=== PATIENT | male | born 1995 | race Hispanic/Latino ===

== ENCOUNTER 2022-05-15 15:55 | Emergency (ER) | payer OTHER, SELFPAY ==
[2022-05-15 17:35] LABS: Absolute Lymphocytes (CBC) 2.2 K/uL (0.7-4.9); Hematocrit 47.9 % (39.6-49.0); Lymphocytes % 24.6 % (15.3-44.8); MPV 7.9 fL (7.6-11.3); RBC Red Blood Cell Count 5.44 M/uL (4.33-5.43)
[2022-05-15 17:51] LABS: Potassium 3.8 mmol/L (3.5-5.1); Troponin High Sensitivity 7.3 pg/mL (<58.9)
--- NOTE | 2022-05-15 18:01 | RAD REPORT ---
EXAM DESCRIPTION: RAD - Chest Single View - 05/15/2022 5:39 pm CLINICAL HISTORY: CHEST PAIN Chest pain. COMPARISON: No comparisons FINDINGS: Portable technique limits examination quality. The lungs are grossly clear. The heart is normal in size. No displaced fractures. IMPRESSION: No acute intrathoracic process suspected.
[2022-05-15 20:13] VITALS: BP 142/83; TEMP 98.7; O2SAT 100
--- NOTE | 2022-05-16 08:50 | EKG ---
Test Date: 2022-05-15 Test Time: 18:24:23 Defense Attorney: EAN MEASUREMENT RESULTS: Intervals: Rate: 49 MO: 132 QRSD: 86 QT: 424 QTc: 383 [place]: P: 44 MO: 132 QRS: 37 T: 41 INTERPRETIVE STATEMENTS: Sinus bradycardia Otherwise normal ECG No previous ECG available for comparison Electronically Signed On 05-16-22 08:47:01 CDT by Wilmar Lees
--- NOTE | 2022-05-17 09:43 | EDPHYS ---
Physician Documentation [facility] Name: Emil Mead Age: 26 yrs Sex: Male : 1995 Arrival Date: 05/15/2022 Time: 16:02 Bed 12 Private MD: ED Physician All Reardon HPI: 05/15 18:28 This 26 yrs old Male presents to ER via Ambulatory with complaints of Chest kb Pain, bradycardia. 18:28 The patient or guardian reports chest pain that is located primarily in the chest kb diffusely. The pain does not radiate. Associated signs and symptoms: The patient has no apparent associated signs or symptoms. The chest pain is described as aching. Duration: The patient or guardian reports multiple episodes, that are intermittent, with no pattern. Modifying factors: The symptoms are alleviated by nothing. the symptoms are aggravated by nothing. Severity of pain: At its worst the pain was mild moderate in the emergency department the pain has resolved. The patient has not experienced similar symptoms in the past. The patient has been recently seen by a physician:. Pt reports chest pain that started 5 days ago. Pain has been intermittent with no pattern. 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 Came in today because today was the first day he had a ride to the emergency room. Denies any chest pain at this time.. Historical: - Allergies: 18:45 No Known Allergies; ss ROS: 18:28 Constitutional: Negative for fever, chills, and weight loss. kb 18:28 Cardiovascular: Positive for chest pain, Negative for edema, orthopnea, palpitations, paroxysmal nocturnal dyspnea. 18:28 All other systems are negative. Exam: 18:28 Constitutional: This is a well developed, well nourished patient who is awake, alert, kb and in no acute distress. Head/Face: Normocephalic, atraumatic. ENT: Moist Mucous membranes Cardiovascular: Regular rate and rhythm with a normal S1 and S2. No gallops, murmurs, or rubs. No pulse deficits. Respiratory: Respirations even and unlabored. No increased work of breathing. Talking in full sentences Abdomen/GI: Soft, non-tender. No distention Skin: Warm, dry with normal turgor. Normal color. MS/ Extremity: Pulses equal, no cyanosis. Neurovascular intact. Full, normal range of motion. Neuro: Awake and alert, GCS 15, oriented to person, place, time, and situation. Moves all extremities. Normal gait. Psych: Awake, alert, with orientation to person, place and time. Behavior, mood, and affect are within normal limits. 18:30 ECG was reviewed by the Attending Physician. kb Vital Signs: 16:19 BP 142 / 83; Pulse 66; Resp 20; Temp 98.7; Pulse Ox 100% ; Weight 80.29 kg; Height 5 bingham ft. 8 in. (175 cm); 16:19 Body Mass Index 26.22 (80.29 kg, 175 cm) bingham MDM: 16:22 Patient medically screened. kb 18:27 Data reviewed: vital signs, nurses notes. Data interpreted: Pulse oximetry: on room air kb is 100 %. Interpretation: normal. 18:28 Counseling: I had a detailed discussion with the patient and/or guardian regarding: the kb historical points, exam findings, and any diagnostic results supporting the discharge/admit diagnosis, lab results, radiology results, the need for outpatient follow up, a family practitioner, to return to the emergency department if symptoms worsen or persist or if there are any questions or concerns that arise at home. 05/15 16:21 Order name: Basic Metabolic Panel; Complete Time: 17:52 kb 05/15 16:21 Order name: CBC with Diff; Complete Time: 17:39 kb 05/15 16:21 Order name: Troponin HS; Complete Time: 17:52 kb 05/15 16:21 Order name: XRAY Chest (1 view); Complete Time: 18:03 kb 05/15 16:21 Order name: EKG; Complete Time: 16:24 kb 05/15 16:21 Order name: Cardiac monitoring; Complete Time: 18:30 kb 05/15 16:21 Order name: EKG - Nurse/Tech; Complete Time: 17:22 kb 05/15 16:21 Order name: IV Saline Lock; Complete Time: 17:22 kb 05/15 16:21 Order name: Labs collected and sent; Complete Time: 17:22 kb 05/15 16:21 Order name: O2 Per Protocol; Complete Time: 18:29 kb 05/15 16:21 Order name: O2 Sat Monitoring; Complete Time: 18:30 kb EC:30 Rate is 49 beats/min. Rhythm is regular. QRS [place] is Normal. MD interval is normal at kb 132 msec. QRS interval is normal at 86 msec. QT interval is normal at 383 msec. Administered Medications: No medications were administered Disposition: 18:59 Co-signature as Attending Physician, All Reardon MD. rn Disposition Summary: 05/15/22 18:37 Discharge Ordered Location: Home kb Condition: Stable kb Diagnosis - Chest pain, unspecified kb - Bradycardia, unspecified kb Followup: kb - With: Emergency Department - When: As needed - Reason: Worsening of condition Followup: kb - With: Private Physician - When: 2 - 3 days - Reason: Recheck today's complaints, Continuance of care, Re-evaluation by your physician Discharge Instructions: - Discharge Summary Sheet kb - Bradycardia, Adult kb - Nonspecific Chest Pain, Adult, [id number] kb Forms: - Medication Reconciliation Form kb - Thank You Letter kb - Work release form kb - Antibiotic Education kb - Prescription Opioid Use kb Signatures: Dispatcher [employer] EDPaige Mac, PIPELINE EXECUTIVE-C PIPELINE EXECUTIVE-All Rhodes MD MD rn Smirch, Shelby, RN RN ss
--- NOTE | 2022-05-17 09:43 | ER ---
Nurse's Notes [facility] Name: Emil Mead Age: 26 yrs Sex: Male : 1995 Arrival Date: 05/15/2022 Time: 16:02 Bed 12 Private MD: Diagnosis: Chest pain, unspecified;Bradycardia, unspecified Presentation: 05/15 16:19 Chief complaint: Patient states: pt presented to ed reporting chest pain and slow heat b[place] rate. community clinic referred pt to ED. Coronavirus screen: Vaccine status: Patient reports being unvaccinated. Ebola Screen: Patient denies travel to an Ebola-affected area in the 21 days before illness onset. Initial Sepsis Screen: Does the patient meet any 2 criteria? No. Patient's initial sepsis screen is negative. Does the patient have a suspected source of infection? No. Patient's initial sepsis screen is negative. Risk Assessment: Do you want to hurt yourself or someone else? Patient reports no desire to harm self or others. Onset of symptoms was May 11, 2022. 16:19 Method Of Arrival: Ambulatory b[place] 16:19 Acuity: CYNDEE 3 bingham Historical: - Allergies: 18:45 No Known Allergies; ss Screenin:30 Abuse screen: Denies threats or abuse. Denies injuries from another. Nutritional iw screening: No deficits noted. Tuberculosis screening: No symptoms or risk factors identified. Fall Risk None identified. Assessment: 18:30 Reassessment: Patient appears in no apparent distress at this time. Patient and/or iw family updated on plan of care and expected duration. Pain level reassessed. Patient is alert, oriented x 3, equal unlabored respirations, skin warm/dry/pink. Patient denies pain at this time. General: Appears in no apparent distress. Pain: Denies pain. Cardiovascular: Patient's skin is warm and dry. 18:45 General: Appears in no apparent distress. comfortable. Pain: Denies pain. Respiratory: ss Airway is patent Respiratory effort is even, unlabored, Respiratory pattern is regular, symmetrical. GI: No signs and/or symptoms were reported involving the gastrointestinal system. Vital Signs: 16:19 BP 142 / 83; Pulse 66; Resp 20; Temp 98.7; Pulse Ox 100% ; Weight 80.29 kg; Height 5 bingham ft. 8 in. (175 cm); 16:19 Body Mass Index 26.22 (80.29 kg, 175 cm) ED Course: 16:02 Patient arrived in ED. am2 16:04 Paige Ruiz FNP-C [facility]. kb 16:04 All Reardon MD is Attending Physician. kb 16:23 Triage completed. [place] 17:22 Basic Metabolic Panel Sent. kc6 17:22 CBC with Diff Sent. kc6 17:22 Troponin HS Sent. kc6 17:22 Inserted saline lock: 20 gauge in right antecubital area, using aseptic technique. kc6 Blood collected. 17:41 XRAY Chest (1 view) In Process Unspecified. EDMS 18:30 Patient has correct armband on for positive identification. NIBP on. iw 18:42 Sheryl Meyer, RN is Primary Nurse. ss 18:45 No provider procedures requiring assistance completed. IV discontinued, intact, ss bleeding controlled, No redness/swelling at site. Pressure dressing applied. Patient maintains SpO2 saturation greater than 95% on room air. Administered Medications: No medications were administered Medication: 18:45 VIS not applicable for this client. ss Outcome: 18:37 Discharge ordered by . kb 18:45 Discharged to home ambulatory. ss 18:45 Condition: good 18:45 Discharge instructions given to patient, Instructed on discharge instructions, follow up and referral plans. Demonstrated understanding of instructions, follow-up care. 18:46 Patient left the ED. ss Signatures: Dispatcher [employer] EDWI Paige Ruiz FNP-C FNP-Yue Cuevas RN RN Sheryl Meyer, LUCINA RN Colette Mckeon am2 Mariajose-StagerDeonna RN RN ha Campbell, Kaitlyn kc6
== END 2022-05-15 18:46 | disposition home or self-care (01) ==
LOC: ER 15:55
DX: R07.89 Other chest pain (principal); R00.1 Bradycardia, unspecified
CPT/HCPCS: 36415; 71045; 80048; 84484; 85025; 93005; 99284